=== PATIENT | male | born 1965 | race Caucasian/White ===

== ENCOUNTER 2019-08-10 12:32 | Emergency (ER) | payer MEDICAID ==
[2019-08-10 12:37] VITALS: Wt 75.0 kg
[2019-08-10 13:11] LABS: BASOPHILS 0.2 % (0-2); EOSINOPHILS 1.5 % (0-7); IMMATURE GRANULOCYTES 0.2 % (0-5); LYMPHOCYTES 28.3 % (15-50); MCH 31.9 pg (26.0-34.0); MCHC 34.8 g/dL (31.0-37.0); MCV 91.8 fL (80.0-100.0); MEAN PLATELET VOLUME 12.1 fL (7.4-10.4); MONOCYTES 7.5 % (2-11); NEUTROPHILS 62.3 % (40-80); PLATELET COUNT 182 10x3/uL (130-400); RBC 5.01 10x6/uL (4.20-6.10); RDW 12.7 % (11.5-14.5); WBC 8.4 10x3/uL (4.8-10.8)
[2019-08-10 13:12] LABS: CALC OSMOLALITY 279 mosm/kg (275-300); CALCIUM 9.4 mg/dL (8.5-10.1); CHLORIDE - SERUM 98 mmol/L (98-107); GLUCOSE 296 mg/dL (74-106); POTASSIUM - SERUM 3.9 mmol/L (3.5-5.1); SODIUM 134 mmol/L (136-145); UREA NITROGEN 14 mg/dL (7-18); eGFR NON AFRICAN AMERICAN 82 mL/min (90-120)
[2019-08-10 13:29] LABS: ALBUMIN 4.4 g/dL (3.4-5.0); ALKALINE PHOSPHATASE 88 U/L (30-120); ALT (SGPT) 18 U/L (10-68); BILIRUBIN - TOTAL 0.37 mg/dL (0.2-1.3); CKMB 0.6 U/L (0.0-3.6); CREATINE KINASE 46 UL (21-232); MAGNESIUM - SERUM 1.7 mg/dL (1.8-2.4); PROTEIN - SERUM 7.7 g/dL (6.4-8.2); THYROID STIMULATING HORMONE 1.27 uIU/mL (0.36-3.74); TROPONIN-I < 0.017 ng/mL (0.000-0.060)
[2019-08-10 13:33] LABS: APTT 36.6 SECONDS (22.8-39.4); INR 1.01 (0.85-1.17); PROTIME 13.3 SECONDS (11.6-15.0)
[2019-08-10 17:01] VITALS: BP 176/113
== END 2019-08-10 16:50 | disposition other institution (70) ==
LOC: D.ER 12:32
PROVIDERS: Family Medicine
DX: I63.9 Cerebral infarction, unspecified (principal); I10 Essential (primary) hypertension